=== PATIENT | female | born 1955 | race Caucasian/White ===

== ENCOUNTER 2019-03-13 17:12 | Observation (INO) ==
[2019-03-13] MEDS: 0.9 % Sodium Chloride 1,000 ML ONE ×2 (17:45→19:22)
[2019-03-13] MEDS ORDERED: 0.9 % Sodium Chloride 1,000 ML IVC ONE (18:00)
[2019-03-13] MEDS ORDERED: *HR* Atropine Sulfate 1 MG/10 ML SYRINGE IVP STA (18:10)
[2019-03-13 18:25] LABS: Basophils % 0.4 %; Eosinophils # 0.2 K/mcL (0.0-0.6); Eosinophils % 1.9 %; Hematocrit 33.6 % (35.3-44.9); Hemoglobin 11.2 g/dL (11.5-15.4); Immature Granulocytes % 0.5 % (0-4); Lymphocytes % 38.9 %; Mean Corpuscular HGB Conc 33.3 g/dL (31.6-35.5); Mean Corpuscular Hemoglobin 31.7 pg (28.0-33.3); Mean Corpuscular Volume 95.2 fL (83.0-100.0); Mean Platelet Volume 10.5 fL (9.4-12.4); Monocytes # 0.6 K/mcL (0.0-1.3); Neutrophils # 5.4 K/mcL (1.6-8.9); Platelet Count 215 K/mcL (140-400); Red Blood Count 3.53 M/mcL (3.82-4.97); Red Cell Distribution Width 11.9 % (11.5-14.5); Segmented Neutrophils % 52.3 %; White Blood Count 10.2 K/mcL (4.3-11.1)
[2019-03-13 18:40] LABS: Alanine Aminotransferase 7 Units/L (7-52); Albumin 3.5 g/dL (3.5-5.7); Albumin/Globulin Ratio 1.7 (1.1-2.2); Alkaline Phosphatase 53 Units/L (34-104); Aspartate Amino Transferase 11 Units/L (13-39); BUN/Creatinine Ratio 15 (6-26); Bilirubin,Total 0.2 mg/dL (0.3-1.0); Blood Urea Nitrogen 16 mg/dL (8-23); Calcium 8.6 mg/dL (8.6-10.3); Carbon Dioxide 23 mEq/L (23-29); Chloride 107 mEq/L (98-107); Globulin 2.1 g/dL (2.4-3.5); Glucose 103 mg/dL (70-105); Osmolality,Calculated 287 (280-300); Potassium 4.1 mEq/L (3.5-5.1); Sodium 138 mEq/L (136-145); Total Protein 5.6 g/dL (6.4-8.9); Troponin I < 0.03 ng/mL (< 0.04); eGFR For African Americans > 60 (> 60); eGFR For Non-African Americans 52 (> 60)
[2019-03-13] MEDS ORDERED: Calcium Gluconate 1gm/50mL 1 GM/50 ML BAG IVPB ONE (19:08)
[2019-03-13] MEDS ORDERED: *HR* Atropine Sulfate 1 MG/10 ML SYRINGE IVP ONE (19:09)
[2019-03-13] MEDS ORDERED: Naloxone 0.4 MG/ML INJ IVP PRN (20:04)
[2019-03-13 20:15] LABS: Bilirubin,Urine Negative (Negative); Blood,Urine Negative (Negative); Clarity,Urine Clear (Clear); Color,Urine Yellow (Yellow); Glucose,Urine (UA) Normal (Normal); Ketones,Urine Negative (Negative); Leukocyte Esterase,Urine Trace (Negative); Nitrite,Urine Negative (Negative); Protein,Urine Negative (Neg-Trace); Specific Gravity,Urine 1.018 (1.010-1.025); Urobilinogen,Urine Normal (Normal)
[2019-03-13 20:17] LABS: Bacteria,Urine None Seen per hpf (None-Few); Hyaline Casts,Urine Few per lpf (None-Few); RBC,Urine 0-3 per hpf (0-3); Squamous Epithelial Cell,Urine Many per lpf (None-Few); WBC,Urine 0-3 per hpf (0-3)
[2019-03-14] MEDS: lamoTRIgine 100 MG TABLET PO SCH ×3 (01:05→21:22)
[2019-03-14 01:28] LABS: Hematocrit 34.1 % (35.3-44.9); Hemoglobin 11.5 g/dL (11.5-15.4); Mean Corpuscular HGB Conc 33.7 g/dL (31.6-35.5); Mean Corpuscular Hemoglobin 31.3 pg (28.0-33.3); Mean Corpuscular Volume 92.7 fL (83.0-100.0); Mean Platelet Volume 10.8 fL (9.4-12.4); Platelet Count 230 K/mcL (140-400); Red Blood Count 3.68 M/mcL (3.82-4.97); Red Cell Distribution Width 11.9 % (11.5-14.5); White Blood Count 12.6 K/mcL (4.3-11.1)
[2019-03-14 01:34] LABS: Prothrombin Time 11.7 Seconds (9.4-12.1)
[2019-03-14 01:37] LABS: Activated Partial Thrombo Time 30.5 Seconds (26.0-36.0)
[2019-03-14 01:49] LABS: Alanine Aminotransferase 7 Units/L (7-52); Albumin 3.6 g/dL (3.5-5.7); Albumin/Globulin Ratio 1.6 (1.1-2.2); Alkaline Phosphatase 55 Units/L (34-104); Aspartate Amino Transferase 11 Units/L (13-39); BUN/Creatinine Ratio 16 (6-26); Bilirubin,Total 0.2 mg/dL (0.3-1.0); Blood Urea Nitrogen 14 mg/dL (8-23); Calcium 8.3 mg/dL (8.6-10.3); Carbon Dioxide 22 mEq/L (23-29); Chloride 108 mEq/L (98-107); Globulin 2.2 g/dL (2.4-3.5); Glucose 141 mg/dL (70-105); Magnesium 1.5 mg/dL (1.6-2.6); Osmolality,Calculated 289 (280-300); Potassium 3.7 mEq/L (3.5-5.1); Sodium 138 mEq/L (136-145); Total Protein 5.8 g/dL (6.4-8.9); eGFR For African Americans > 60 (> 60); eGFR For Non-African Americans > 60 (> 60)
[2019-03-14] MEDS: *HR* Heparin 5,000 UNIT/ML VIAL SQ SCH ×3 (05:37→21:22)
[2019-03-14] MEDS ORDERED: NON-FORMULARY MEDICATION 1 EACH EACH (Sumatriptan Succinate [Imitrex] 100 MG) PO PRN (07:17)
[2019-03-14] MEDS ORDERED: SUMAtriptan succinate 50 MG TABLET PO PRN (08:02)
[2019-03-14] MEDS: Gabapentin 300 MG CAPSULE PO SCH ×2 (14:53→21:22)
[2019-03-14] MEDS ORDERED: *HR* LORazepam 2 MG/ML VIAL IVP ONE (18:45)
[2019-03-15] MEDS: *HR* Heparin 5,000 UNIT/ML VIAL SQ SCH ×2 (05:27→11:39)
[2019-03-15 07:45] VITALS: BP 147/83
[2019-03-15] MEDS: Gabapentin 300 MG CAPSULE PO SCH (08:01)
[2019-03-15] MEDS: lamoTRIgine 100 MG TABLET PO SCH (08:01)
[2019-03-15 08:04] LABS: Basophils # 0.1 K/mcL (0.0-0.2); Basophils % 0.7 %; Eosinophils # 0.2 K/mcL (0.0-0.6); Eosinophils % 2.4 %; Hematocrit 34.6 % (35.3-44.9); Hemoglobin 11.9 g/dL (11.5-15.4); Immature Granulocytes % 0.2 % (0-4); Lymphocytes # 4.2 K/mcL (0.6-4.6); Lymphocytes % 52.2 %; Mean Corpuscular HGB Conc 34.4 g/dL (31.6-35.5); Mean Corpuscular Hemoglobin 31.4 pg (28.0-33.3); Mean Corpuscular Volume 91.3 fL (83.0-100.0); Mean Platelet Volume 10.6 fL (9.4-12.4); Monocytes # 0.4 K/mcL (0.0-1.3); Monocytes % 4.5 %; Neutrophils # 3.2 K/mcL (1.6-8.9); Platelet Count 235 K/mcL (140-400); Red Blood Count 3.79 M/mcL (3.82-4.97); White Blood Count 8.1 K/mcL (4.3-11.1)
[2019-03-15 08:16] LABS: BUN/Creatinine Ratio 12 (6-26); Blood Urea Nitrogen 11 mg/dL (8-23); Carbon Dioxide 24 mEq/L (23-29); Chloride 106 mEq/L (98-107); Glucose 83 mg/dL (70-105); Magnesium 1.9 mg/dL (1.6-2.6); Osmolality,Calculated 291 (280-300); Sodium 141 mEq/L (136-145); eGFR For African Americans > 60 (> 60); eGFR For Non-African Americans 60 (> 60)
== END 2019-03-15 13:14 | disposition home or self-care (01) ==
LOC: EMEROOARM 17:12 → 2ANU 17:12 → SUATTDRO 21:43 → 2ANU 22:59 → CDU 23:31 → 2ANU 23:43
PROVIDERS: ADMIT Internal Medicine; ATTEND Internal Medicine

== ENCOUNTER 2019-06-24 00:17 | Observation (INO) ==
[2019-06-24] MEDS ORDERED: Nitroglycerin 0.4 MG TAB.SUBL SL PRN (00:21)
[2019-06-24 00:36] LABS: Basophils % 0.3 %; Eosinophils # 0.4 K/mcL (0.0-0.6); Eosinophils % 2.6 %; Hematocrit 41.5 % (35.3-44.9); Hemoglobin 13.6 g/dL (11.5-15.4); Immature Granulocytes % 0.4 % (0-4); Lymphocytes # 5.4 K/mcL (0.6-4.6); Lymphocytes % 40.2 %; Mean Corpuscular HGB Conc 32.8 g/dL (31.6-35.5); Mean Corpuscular Hemoglobin 30.8 pg (28.0-33.3); Mean Corpuscular Volume 94.1 fL (83.0-100.0); Mean Platelet Volume 9.9 fL (9.4-12.4); Monocytes # 0.8 K/mcL (0.0-1.3); Neutrophils # 6.8 K/mcL (1.6-8.9); Platelet Count 286 K/mcL (140-400); Red Blood Count 4.41 M/mcL (3.82-4.97); Segmented Neutrophils % 50.5 %; White Blood Count 13.5 K/mcL (4.3-11.1)
[2019-06-24 00:51] LABS: Platelet Estimate Normal (Normal)
[2019-06-24 00:57] LABS: BUN/Creatinine Ratio 16 (6-26); Blood Urea Nitrogen 16 mg/dL (8-23); Calcium 9.4 mg/dL (8.6-10.3); Carbon Dioxide 24 mEq/L (23-29); Chloride 101 mEq/L (98-107); Glucose 84 mg/dL (70-105); Osmolality,Calculated 282 (280-300); Potassium 4.4 mEq/L (3.5-5.1); Sodium 136 mEq/L (136-145); eGFR For African Americans > 60 (> 60); eGFR For Non-African Americans 56 (> 60)
[2019-06-24 00:58] LABS: Troponin I < 0.03 ng/mL (< 0.04)
[2019-06-24] MEDS ORDERED: Morphine Sulfate 2 MG/ML SYRINGE IVP ONE (01:28)
[2019-06-24] MEDS ORDERED: Morphine Sulfate 2 MG/ML SYRINGE IVP PRN (02:03)
[2019-06-24] MEDS ORDERED: *HR* Heparin 5,000 UNIT/ML VIAL SQ SCH (06:00)
[2019-06-24 06:31] LABS: Basophils % 0.3 %; Eosinophils # 0.3 K/mcL (0.0-0.6); Eosinophils % 2.5 %; Hematocrit 35.9 % (35.3-44.9); Immature Granulocytes % 0.3 % (0-4); Lymphocytes # 4.3 K/mcL (0.6-4.6); Lymphocytes % 36.9 %; Mean Corpuscular HGB Conc 32.9 g/dL (31.6-35.5); Mean Corpuscular Hemoglobin 31.1 pg (28.0-33.3); Mean Corpuscular Volume 94.5 fL (83.0-100.0); Mean Platelet Volume 9.8 fL (9.4-12.4); Monocytes # 0.8 K/mcL (0.0-1.3); Monocytes % 6.7 %; Neutrophils # 6.2 K/mcL (1.6-8.9); Platelet Count 247 K/mcL (140-400); Red Cell Distribution Width 12.1 % (11.5-14.5); Segmented Neutrophils % 53.3 %; White Blood Count 11.7 K/mcL (4.3-11.1)
[2019-06-24 06:32] LABS: INR 1.1; Prothrombin Time 12.1 Seconds (9.4-12.1)
[2019-06-24 06:35] LABS: Activated Partial Thrombo Time 35.3 Seconds (26.0-36.0)
[2019-06-24 06:36] LABS: Hemoglobin 11.8 g/dL (11.5-15.4)
[2019-06-24 06:47] LABS: BUN/Creatinine Ratio 15 (6-26); Blood Urea Nitrogen 14 mg/dL (8-23); Calcium 8.9 mg/dL (8.6-10.3); Carbon Dioxide 26 mEq/L (23-29); Chloride 103 mEq/L (98-107); Glucose 87 mg/dL (70-105); Osmolality,Calculated 284 (280-300); Potassium 3.6 mEq/L (3.5-5.1); Sodium 137 mEq/L (136-145); eGFR For African Americans > 60 (> 60); eGFR For Non-African Americans 59 (> 60)
[2019-06-24] MEDS ORDERED: Aspirin 81 MG TAB.CHEW PO SCH (09:00)
[2019-06-24] MEDS ORDERED: GI Cocktail 40 ML EACH PO ONE (09:41)
[2019-06-24] MEDS ORDERED: *HR* LORazepam 0.5 MG TABLET PO PRN (10:14)
[2019-06-24] MEDS ORDERED: lamoTRIgine 100 MG TABLET PO SCH (10:15)
[2019-06-24 11:08] VITALS: BP 141/79
== END 2019-06-24 13:52 | disposition home or self-care (01) ==
LOC: 3BNU 00:17 → EMEROOARM 00:17 → SUATTDRO 02:14 → 3BNU 02:40
PROVIDERS: ADMIT Student in an Organized Health Care Education/Training Program; ATTEND Internal Medicine

== ENCOUNTER 2021-07-27 06:02 | Observation (INO) ==
[2021-07-27] MEDS ORDERED: Clindamycin 900 MG/50 ML 900 MG/50 ML IV.SOLN IVPB ONE (06:19)
[2021-07-27] MEDS ORDERED: Albuterol 2.5 MG/3 ML NEBULIZER IH ONE (06:28)
[2021-07-27] MEDS ORDERED: *HR* HYDROmorphone PF 0.5 MG/0.5 ML SYRINGE IVP PRN (06:28)
[2021-07-27] MEDS ORDERED: Famotidine 20 MG/2 ML VIAL IVP ONE (06:28)
[2021-07-27] MEDS ORDERED: Acetaminophen IV 1,000 MG/100 ML BAG IVPB ONE (06:28)
[2021-07-27] MEDS ORDERED: Ondansetron 4 MG/2 ML VIAL IVP PRN ×2 (06:28→12:42)
[2021-07-27] MEDS ORDERED: Ringers Solution, Lactated 1,000 ML IVC SCH (06:30)
[2021-07-27] MEDS ORDERED: Vancomycin 1,000 MG VIAL ONE (07:17)
[2021-07-27] MEDS ORDERED: Ondansetron 4 MG/2 ML VIAL ONE (07:21)
[2021-07-27] MEDS ORDERED: Lidocaine -MPF 2% 2 ML VIAL ONE (07:21)
[2021-07-27] MEDS ORDERED: *HR* Rocuronium Bromide 50 MG/5 ML VIAL ONE (07:21)
[2021-07-27] MEDS ORDERED: *HR* FentaNYL (PF) 100 MCG/2 ML VIAL ONE (07:21)
[2021-07-27] MEDS ORDERED: *HR* Propofol 200 MG/20 ML VIAL IVP ONE (07:22)
[2021-07-27] MEDS ORDERED: *HR* Succinylcholine 200 MG/10 ML VIAL IVP ONE (07:23)
[2021-07-27] MEDS ORDERED: *HR* Remifentanil 1 MG VIAL IVP ONE ×2 (07:28→09:56)
[2021-07-27] MEDS ORDERED: *HR* Phenylephrine 10 MG/ML VIAL ONE (07:44)
[2021-07-27] MEDS ORDERED: Polymyxin B Sulfate 500,000 UNIT, Sodium Chloride IRRigation 1,000 ML IR ONE (07:45)
[2021-07-27] MEDS ORDERED: EPHEDrine 50 MG/ML VIAL ONE (08:20)
[2021-07-27] MEDS ORDERED: *HR* HYDROMORPHONE 2 MG/ML VIAL ONE (10:36)
[2021-07-27] MEDS: *HR* FentaNYL (PF) 100 MCG/2 ML VIAL IVP PRN ×3 (12:02→12:17)
[2021-07-27] MEDS ORDERED: Acetaminophen 325 MG TABLET PO PRN (12:42)
[2021-07-27] MEDS ORDERED: Naloxone 0.4 MG/ML INJ IVP PRN (12:42)
[2021-07-27] MEDS ORDERED: hydrOXYzine pamoate 25 MG CAPSULE PO PRN (12:48)
[2021-07-27] MEDS ORDERED: SUMAtriptan succinate 50 MG TABLET PO PRN (12:49)
[2021-07-27] MEDS: calcium polycarbophiL 625 MG TABLET PO SCH ×2 (16:02→21:43)
[2021-07-27] MEDS: Clindamycin 900 MG/50 ML 900 MG/50 ML IV.SOLN IVPB SCH (16:02)
[2021-07-27] MEDS ORDERED: 0.9 % Sodium Chloride 1,000 ML IVC ONE (17:48)
[2021-07-27] MEDS ORDERED: 0.9 % Sodium Chloride 1,000 ML ONE (17:50)
[2021-07-27] MEDS: *HR* HYDROcodone/Acet 5/325 mg TABLET PO PRN (18:45)
[2021-07-27] MEDS: Ringers Solution, Lactated 1,000 ML IVC SCH (19:40)
[2021-07-27] MEDS: lamoTRIgine 100 MG TABLET PO SCH (19:46)
[2021-07-27] MEDS: *HR* OxyCODONE Immed Rel 5 MG TABLET PO PRN (21:51)
[2021-07-28] MEDS: Clindamycin 900 MG/50 ML 900 MG/50 ML IV.SOLN IVPB SCH (00:11)
[2021-07-28] MEDS: *HR* HYDROcodone/Acet 5/325 mg TABLET PO PRN (01:28)
[2021-07-28] MEDS: Ringers Solution, Lactated 1,000 ML IVC SCH (06:14)
[2021-07-28] MEDS: calcium polycarbophiL 625 MG TABLET PO SCH ×3 (09:15→20:04)
[2021-07-28] MEDS: *HR* OxyCODONE Immed Rel 5 MG TABLET PO PRN ×2 (09:15→18:51)
[2021-07-28] MEDS: lamoTRIgine 100 MG TABLET PO SCH ×2 (09:15→20:04)
[2021-07-28] MEDS: lisinopriL 5 MG TABLET PO SCH (13:45)
[2021-07-29] MEDS ORDERED: tiZANidine 4 MG TABLET PO SCH (06:28)
[2021-07-29] MEDS ORDERED: Scopolamine Patch 1.5 MG PATCH.TD72 TD ONE (08:56)
[2021-07-29] MEDS: lamoTRIgine 100 MG TABLET PO SCH ×2 (09:21→21:43)
[2021-07-29] MEDS: calcium polycarbophiL 625 MG TABLET PO SCH ×3 (09:21→21:43)
[2021-07-29] MEDS: lisinopriL 5 MG TABLET PO SCH (09:22)
[2021-07-29] MEDS: *HR* HYDROcodone/Acet 5/325 mg TABLET PO PRN ×2 (09:26→21:45)
[2021-07-29] MEDS: Simethicone 80 MG TAB.CHEW PO SCH ×3 (15:05→21:43)
[2021-07-30 01:30] VITALS: O2SAT 92
[2021-07-30] MEDS: calcium polycarbophiL 625 MG TABLET PO SCH (09:35)
[2021-07-30] MEDS: Simethicone 80 MG TAB.CHEW PO SCH (09:35)
[2021-07-30] MEDS: lisinopriL 5 MG TABLET PO SCH (09:35)
[2021-07-30] MEDS: lamoTRIgine 100 MG TABLET PO SCH (09:35)
[2021-07-30 10:07] VITALS: BP 110/68; PULSE 82; TEMP 98.5
== END 2021-07-30 12:29 | disposition home or self-care (01) ==
LOC: 4WAOSI 06:02 → SDCAOSI 06:02 → 4WAOSI 12:37
PROVIDERS: ADMIT Orthopaedic Surgery Orthopaedic Surgery of the Spine; ATTEND Orthopaedic Surgery Orthopaedic Surgery of the Spine